=== PATIENT | male | born 1955 | race Caucasian/White ===

== ENCOUNTER 2020-01-27 01:07 | Inpatient (IN) | payer MEDICARE ==
[~2020-01-27] VITALS: Ht 180.3 cm; Wt 111.0 kg
[2020-01-27 01:58] LABS: BASOPHILS % (AUTO) 0 % (0-1); EOSINOPHILS % (AUTO) 0 % (1-7); LYMPHOCYTES % (AUTO) 7 % (22-44); MEAN CORPUSCULAR HEMOGLOBIN 32.2 pg (27.5-34.5); MEAN CORPUSCULAR HGB CONC 33.8 g/dL (33.2-36.2); MEAN PLATELET VOLUME 8.3 fL (7.4-10.4); MONOCYTES % (AUTO) 16 % (2-9); NEUTROPHILS % (AUTO) 77 % (42-75); PLATELET COUNT 306 x10^3/uL (130-400); RED BLOOD COUNT 5.28 x10^6/uL (4.38-5.82); RED CELL DISTRIBUTION WIDTH 15.1 % (9.4-14.8)
[2020-01-27] MEDS ORDERED: METOPROLOL 1 MG/ML, 5ML IVPush PRN (02:00)
[2020-01-27] MEDS ORDERED: METOPROLOL 1 MG/ML, 5ML ONE ×2 (02:05→05:05)
[2020-01-27 02:10] LABS: MD NO
[2020-01-27 02:14] LABS: ALBUMIN 3.8 g/dL (3.4-5.0); ANION GAP 11 mmol/L (5-15); CALCIUM 8.9 mg/dL (8.5-10.1); CHLORIDE 108 mmol/L (98-107)
[2020-01-27 02:19] LABS: TROPONIN I 0.134 ng/mL (0.000-0.045)
--- NOTE | 2020-01-27 04:06 | NUR ---
Pt is a transfer from [place], [place] for a SBO in [facility]. Patient had ABD pain x1 week. Pt has significant caradiac hx: CHF, CAD EF <30 Patient noted to be resting comfortably at this time. Offers no compalints. VSS.
--- NOTE | 2020-01-27 04:07 | NUR ---
Late entry: 299- Patient ambulatory to and from restroom with cane. Steady on feet. Denies any compalints. Noted to be be short of breath and HR 140's after returning to from the restroom. Patient was then medicated per APR. Noted to resting comfortably at this time.
[2020-01-27] MEDS ORDERED: MORPHINE SULFATE 4 MG/ML, 1ML ONE ×3 (05:19→13:01)
--- NOTE | 2020-01-27 05:20 | NUR ---
Unable to document second dose of lopresser. Patient was given second dose of lopressor 5mg for elevated heart rate. Patient c/o increased pain. Order for morphine 4mg to be given IV
[2020-01-27] MEDS ORDERED: MORPHINE SULFATE 4 MG/ML, 1ML IV ONE ×2 (06:00→16:00)
--- NOTE | 2020-01-27 07:13 | NUR ---
REPORT FROM NESHA RUDD. PT LAYING BACK IN BED FINDING POSITION OF COMFORT. HOB TO 30 [place], PILLOW POSITION CHANGED. PT DENIES PO FOOD OR NUTRITION SINCE YESTERDAY AM. CURRENTLY AWAITING ADMISSION BED.
[2020-01-27] MEDS ORDERED: DOCU-180 PO (07:20)
[2020-01-27] MEDS ORDERED: ATORVASTATIN PO (07:20)
[2020-01-27] MEDS ORDERED: ASPI-515 PO (07:20)
[2020-01-27] MEDS ORDERED: LISI-167 PO (07:20)
[2020-01-27] MEDS ORDERED: SPIR25TA5 PO (07:20)
[2020-01-27] MEDS ORDERED: MIDO5TAB9 PO (07:20)
--- NOTE | 2020-01-27 07:48 | NUR ---
REPEAT EKG TAKEN BY NESHA SUÁREZ. EKG SHOWN TO DR PARADA. DISCUSSION REGARDING PT'S WISHES OF NO CARDIAC INTERVENTION, PAIN LEVEL AND ACUTE CHANGES TO BP. DR PARADA TO REACH OUT TO HOSPITALIST REGARDING PT'S ADMISSION ORDERS. PT LAYING ON SIDE IN BED, WHICH IS COMFORTABLE FOR HIM RIGHT NOW. OUTSIDE RESIDENTIAL SALES PROFESSIONAL AWARE.
--- NOTE | 2020-01-27 08:17 | NUR ---
DISCUSSION WITH HOSPITALIST PUBLIC EVENTS FACILITIES RENTAL MANAGER REGUARDING PT'S CURRENT STATE. PUBLIC EVENTS FACILITIES RENTAL MANAGER AND DR PARADA DISCUSSING CARE PRIOR TO ASSESSMENT. AWAITING FURTHER ORDERS.
--- NOTE | 2020-01-27 08:49 | NUR ---
DISCUSSION WITH BINDER LOCKSTITCH HOSPITALIST REGARDING PAIN MEDICATION OPTIONS. AWAITING ORDERS AT THIS TIME. RN HELPED CHANGE PT'S BRIEF, GIANNI CARE GIVEN. NEW BRIEF APPLIED. DAUGHTER REMAINS AT BEDSIDE. SIDE RAILS UP, CALL LIGHT IN REACH.
[2020-01-27] MEDS ORDERED: BISACODYL 10 MG SUPP PR PRN (09:00)
[2020-01-27] MEDS ORDERED: PHARMACY MAY ADJ FOR RENAL FX MC PRN (09:00)
[2020-01-27] MEDS ORDERED: ONDANSETRON 2MG/ML, 2ML IVPush PRN ×2 (09:00→16:00)
[2020-01-27] MEDS ORDERED: ONDANSETRON ODT 4 MG PO PRN (09:00)
[2020-01-27] MEDS ORDERED: PROMETHAZINE 25 MG/ML, 1ML IM PRN (09:00)
[2020-01-27] MEDS ORDERED: hydrALAzine 20 MG/ML, 1ML IVPush PRN (09:00)
[2020-01-27] MEDS ORDERED: SODIUM CHLORIDE 0.9% 1,000 ML IV SCH (09:00)
[2020-01-27] MEDS ORDERED: METRONIDAZOLE PMX 500MG/100ML 100 ML IV SCH (09:00)
[2020-01-27] MEDS ORDERED: CEFTRIAXONE PMX 1GM/50ML 50 ML IV SCH (09:00)
[2020-01-27] MEDS ORDERED: DILTIAZEM 5 MG/ML, 5ML IVPush PRN (09:30)
[2020-01-27] MEDS ORDERED: METRONIDAZOLE PMX 500MG/100ML 100 ML ONE (09:32)
[2020-01-27] MEDS ORDERED: CEFTRIAXONE PMX 1GM/50ML 50 ML ONE (09:32)
[2020-01-27] MEDS: morphine SULFATE 10 MG/ML, 1ML IVPush PRN ×2 (09:42→13:06)
[2020-01-27 10:02] LABS: TROPONIN I 0.189 ng/mL (0.000-0.045)
--- NOTE | 2020-01-27 10:03 | NUR ---
CRITICAL LAB CALLED TO [facility] FOR TROPONIN.
--- NOTE | 2020-01-27 11:17 | NUR ---
US REMAINS AT BEDSIDE FOR STUDY. PT UNCOMFORTABLE IN POSITION. ABLE TO SLOW BREATHING WHEN TALKING WITH DAUGHTER. ENCOURAGED TO SLOW BREATHING. ONCE US IS COMPLETED RN TO CHANGE OUT ABX.
--- NOTE | 2020-01-27 11:23 | NUR ---
CALL PLACED FOR HOSPITAL BED.
--- NOTE | 2020-01-27 12:05 | NUR ---
PT MOVED TO HOSPITAL BED, HOB TO POSITION OF COMFORT. DISCUSSION WITH HOSPITALIST REGARDING PT'S IV FLUIDS. IVF INCREASED FROM 75 TO 100 PER HOUR, NO FURTHER FLUID ORDERS. SECOND ABX INITIATED.
--- NOTE | 2020-01-27 12:33 | NUR ---
FIRST CALL FOR REPORT
--- NOTE | 2020-01-27 12:40 | NUR ---
REPORT GIVEN TO ASSISTANT COMMUNITY MANAGER. PER RN, PT ABLE TO COME UP FOLLOWING COVID SWAB RESULTS THAT ASSISTANT COMMUNITY MANAGER ORDERED.
--- NOTE | 2020-01-27 12:49 | NUR ---
SECOND ATTEMPT TO CALL REPORT TO TELE.
[2020-01-27 12:59] VITALS: BP 109/70
--- NOTE | 2020-01-27 13:06 | NUR ---
IV NS AND IV ABX STILL INFUSING ON TRANSFER.
--- NOTE | 2020-01-27 13:10 | NUR ---
COVID SWAB WALKED TO LAB.
--- NOTE | 2020-01-27 13:17 | NUR ---
CALL TO TELE, NEW IV TO BE PLACED PRIOR TO TRANSPORT. NESHA SALDANA STARTING NEW IV.
--- NOTE | 2020-01-27 13:23 | NUR ---
CALL TO JENNY Bond NP REGARDING PT'S HR. PER SPA EXPERIENCE COORDINATOR HOLD OFF ON DILTIAZEM WITH CURRENT BP. ALLOW FOR NS BOLUS. AWAITING ORDERS.
--- NOTE | 2020-01-27 13:29 | NUR ---
NEW IV PLACED.
[2020-01-27] MEDS ORDERED: SODIUM CHLORIDE 0.9%, 500ML IVBOLUS ONE (13:30)
[2020-01-27] MEDS ORDERED: FENTANYL PF 100 MCG/2ML ONE (13:37)
[2020-01-27] MEDS ORDERED: LORazepam 2 MG/ML, 1ML IV ONE (16:00)
[2020-01-27] MEDS ORDERED: NOREPINEPHRINE 8 MG in SODIUM CHLORIDE 0.9% 242 ML IV PRN (16:00)
[2020-01-27] MEDS ORDERED: PHENYLEPHRINE 50 MG in SODIUM CHLORIDE 0.9% 245 ML IV PRN (16:00)
[2020-01-27] MEDS ORDERED: VASOPRESSIN 20 UNIT in SODIUM CHLORIDE 0.9% 99 ML IV PRN (16:00)
[2020-01-27] MEDS ORDERED: SODIUM BICARBONATE 8.4% 150 MEQ in DEXTROSE 5% 1,000 ML IV SCH (16:00)
[2020-01-27] MEDS ORDERED: MORPHINE SULFATE 4 MG/ML, 1ML IVPush PRN (16:00)
[2020-01-27] MEDS ORDERED: LORazepam 2 MG/ML, 1ML IVPush PRN (16:00)
[2020-01-27] MEDS ORDERED: PIPERACILLIN/TAZO/PMX 2.25GM 50 ML IVPB SCH (16:00)
[2020-01-28] MEDS ORDERED: SODIUM CHLORIDE 0.9% 1,000 ML IV SCH (09:00)
== END 2020-01-27 21:40 | disposition expired | DRG 853 ==
LOC: ED 01:24 → EDIP 03:40 → 5SO 13:36 → CCU 15:15
PROVIDERS: ADMIT Family Medicine; ATTEND Family Medicine
PROC: 5A1935Z Respiratory Ventilation, Less than 24 Consecutive Hours (ICD-10-PCS; 2020-01-27)
PROC: 0DB80ZZ Excision of Small Intestine, Open Approach (ICD-10-PCS; principal; 2020-01-27 12:45)
DX: A41.9 Sepsis, unspecified organism (principal); I21.9 Acute myocardial infarction, unspecified; J96.00 Acute respiratory failure, unspecified whether with hypoxia or hypercapnia; K55.069 Acute infarction of intestine, part and extent unspecified; N17.0 Acute kidney failure with tubular necrosis; E87.2 Acidosis; I31.3 Pericardial effusion (noninflammatory); I48.92 Unspecified atrial flutter; I50.22 Chronic systolic (congestive) heart failure; K40.30 Unilateral inguinal hernia, with obstruction, without gangrene, not specified as recurrent; Z20.828 Contact with and (suspected) exposure to other viral communicable diseases; Z66 Do not resuscitate; E04.1 Nontoxic single thyroid nodule; E66.9 Obesity, unspecified; E78.5 Hyperlipidemia, unspecified; E86.0 Dehydration; F12.90 Cannabis use, unspecified, uncomplicated; F17.200 Nicotine dependence, unspecified, uncomplicated; Z51.5 Encounter for palliative care; I11.0 Hypertensive heart disease with heart failure; I25.10 Atherosclerotic heart disease of native coronary artery without angina pectoris; I25.5 Ischemic cardiomyopathy; N40.0 Benign prostatic hyperplasia without lower urinary tract symptoms; I25.2 Old myocardial infarction; Z83.3 Family history of diabetes mellitus; Z79.899 Other long term (current) drug therapy; Z68.34 Body mass index [BMI] 34.0-34.9, adult
CPT/HCPCS: 36415; 36600; 80048; 82040; 82803; 83036; 83605; 83735; 84145; 84443; 84484; 85025; 87040; 87635; 88307; 93005; 93306; 94002; 96374; 96375; 96376; 99285; G0378; J0696; J3010; J2060; J2270; J7030; J7040